=== PATIENT | male | born 1985 | race Hispanic/Latino ===

== ENCOUNTER 2018-07-07 18:27 | Emergency (ER) | payer OTHER ==
[~2018-07-07] VITALS: Ht 160 cm; Wt 59.0 kg
[~2018-07-07 18:27] MED LIST: AUGMENTIN 875 M1 TAB PO; KEFLEX500 MG PO; PERCOCET 325 MG1 TA2 PO
[2018-07-07 18:31] VITALS: BP 142/70
[2018-07-07] MEDS ORDERED: AUGMENTIN 875-1 EACH PO (20:12)
[2018-07-07] MEDS ORDERED: PERCOCET 5-3251 EACH PO (20:12)
--- NOTE | 2018-07-07 20:13 | ED GENERAL ADULT ---
History of Present Illness General Chief Complaint: Sore Throat, Dental Pain Stated Complaint: TOOTH ACHE Source: patient Exam Limitations: no limitations Vital Signs & Intake/Output Vital Signs & Intake/Output Vital Signs Date Time Temp Pulse Resp B/P B/P Pulse O2 O2 Flow FiO2 Mean Ox Delivery Rate 07/07 1831 98.7 74 18 142/70 98 Room Air Allergies Coded Allergies: NO KNOWN ALLERGIES (12/16/16) Reconcile Medications Amoxicillin/Potassium Clav (Augmentin 875-125 Tablet) 875 MG-125 MG TABLET 1 TAB PO BID dental infection Oxycodone HCl/Acetaminophen (Percocet 5-325 MG Tablet) 5 MG-325 MG TABLET 1 TAB PO Q4-6 PRN PRN pain Triage Note: COMPLAINS OF R SIDE DENTAL PAIN FOR ABOUT 1 WEEK, STATES THAT HE HAS DENTIST APPOINTMENT FRIDAY AND WAS TOLD TO COME AND GET STARTED ON ABT SO THAT THEY CAN WORK ON THE TOOTH. PT PUT A TEMPORARY FILLING ON AFFECTED TOOTH TO HELP WITH PAIN Triage Nurses Notes Reviewed? yes Onset: Gradual Duration: day(s): Timing: constant HPI: 33-year-old male with a history of depression presenting with dental pain 5 days. Patient reports that he had partials placed to the right side of his upper and lower teeth one year ago. During the procedure there were feelings that were accidentally taken out. He was supposed to go back to the dentist for fillings, but never followed up. Began to have gradual onset of pain to his right upper and right lower teeth 5 days ago. Denies fevers or purulent drainage. Has an appointment with [facility] and Friday for evaluation, but is a new patient to the office. Therefore, they could not call in prescriptions for him and he was instructed to come to the emergency department for pain medications and antibiotics. (Roberta Hernandez) Past History Travel History Traveled to [place] past 21 day No Medical History Any Pertinent Medical History? see below for history Neurological: NONE EENT: NONE Cardiovascular: NONE Respiratory: NONE Gastrointestinal: NONE Hepatic: NONE Renal: nephrolithiasis Musculoskeletal: NONE Psychiatric: depression Endocrine: NONE Blood Disorders: NONE Cancer(s): NONE Tetanus Vaccine: 05/07/15 Surgical History Surgical History: N Psychosocial History What is your primary language Citizen Of [place] Tobacco Use: Current Daily Use Daily Tobacco Use Amount/Type: => 5 Cigarettes daily ETOH Use: denies use Illicit Drug Use: denies illicit drug use Family History Hx Contributory? No (Roberta Hernandez) Review of Systems Review of Systems Constitutional: Reports: no symptoms. EENTM: Reports: see HPI. Respiratory: Reports: no symptoms. Cardiovascular: Reports: no symptoms. GI: Reports: no symptoms. Genitourinary: Reports: no symptoms. Musculoskeletal: Reports: no symptoms. Skin: Reports: no symptoms. Neurological/Psychological: Reports: no symptoms. Hematologic/Endocrine: Reports: no symptoms. Immunologic/Allergic: Reports: no symptoms. All Other Systems: Reviewed and Negative (Roberta Hernandez) Physical Exam Physical Exam General Appearance: well developed/nourished, no apparent distress, alert, awake Comments: Gen.: Well-nourished, well-developed, no acute distress. Head: Normocephalic, atraumatic. Eyes: Normal inspection bilaterally Ears: Normal inspection bilaterally Nose: Normal inspection Oral cavity: There are multiple dental caries to right upper and lower teeth, positive tenderness to palpation with to thrust of 3 right upper teeth and to right lower teeth, no gingival abscess or purulent drainage. Neck: Normal inspection Lungs: clear to auscultation bilaterally, normnal breath sounds Heart: regular rate and rhythm Abdomen: soft and non-tender Extremities: Normal inspection Neurologic: alert and oriented x3, steady gait Skin: warm and dry Psychiatric: Normal mood and affect, no apparent delusions or hallucinations, behavior appropriate Core Measures ACS in differential dx? No CVA/TIA Diagnosis: No Sepsis Present: No Sepsis Focused Exam Completed? No (Roberta Hernandez) Progress Differential Diagnoses I considered the following diagnoses in my evaluation of the patient: [Dental caries versus gingival abscess versus apical abscess, no evidence of Zhang's angina] Plan of Care: Given Rx Augmentin and Percocet. Instructed to continue using ibuprofen over- the-counter as well. Will follow up with his dentist on Friday as scheduled. Counseled on supportive care and strict return precautions. Initial ED EKG: none (Roberta Hernandez) Departure Departure Disposition: HOME OR SELF CARE Condition: Stable Clinical Impression Primary Impression: Pain, dental Referrals: Patient Has No Primary Care Dr (PCP/Family) Additional Instructions: Take Augmentin as prescribed. Use ibuprofen and Percocet as needed for pain. Follow-up with your dentist as scheduled on Friday. Return to the emergency department for any new or worsening symptoms. Departure Forms: Customer Survey General Discharge Information Prescriptions: Current Visit Scripts Amoxicillin/Potassium Clav (Augmentin 875-125 Tablet) 1 TAB PO BID #20 TAB Oxycodone HCl/Acetaminophen (Percocet 5-325 MG Tablet) 1 TAB PO Q4-6 PRN PRN pain #10 TAB (Roberta Hernandez) Resident Co-Sign Statement Statement: ED Attending supervision documentation- [] I saw and evaluated the patient. I have also reviewed all the pertinent lab results and diagnostic results. I agree with the findings and the plan of care as documented in the Resident's documentation. [X] I have reviewed the ED Record and agree with the Resident's documentation. [] Additions or exceptions (if any) to the Resident's note and plan are summarized below: [] (Kelvin Concepcion DO) Critical Care Note Critical Care Note Critical Care Time: non-applicable (Roberta Hernandez)
== END 2018-07-07 20:27 ==
LOC: ERH 18:27
DX: K08.89 Other specified disorders of teeth and supporting structures (principal)